=== PATIENT | male | born 2005 | race Two or more races ===

== ENCOUNTER 2025-01-31 19:04 | Inpatient (IN) | payer OTHER, SELFPAY ==
[2025-01-31 19:04] VITALS: BMI 30.9
[2025-01-31 19:46] VITALS: BP 125/86; PULSE 90; RESP 18; TEMP 36.8; O2SAT 98
--- NOTE | 2025-01-31 20:10 | XR_ITS ---
Examination: CT abdomen with intravenous contrast CT pelvis with intravenous contrast 2-D coronal reconstructions 2-D sagittal reconstructions Date and time of exam:January 31, 2025 2120 hours INDICATIONS: Onset right lower abdominal pain beginning 5 days ago. CTDI: vol (mGy) 14.7 DLP: (mGycm) 919 Technique: Multiple axial sections of the abdomen and pelvis have been obtained. 64 slice high-resolution scanner used. 3 mm axial sections have been obtained, post intravenous injection 60 cc [id number] 2-D sagittal, coronal reconstructions obtained. Low dose protocols were performed. One or more of the following dose reduction techniques were used; automated exposure control, adjustment of the mA and/or KV according to patient size, use of iterative reconstruction technique. Findings: No focal liver or splenic lesions No gallstones No pancreatic or adrenal mass No renal or ureteral calculi Aorta normal size Inflammatory change about the right colon, for instance coronal image 38 The appendix is not enlarged or inflamed No bowel obstruction No diverticulitis is Mild free fluid in the pelvis Contracted urinary bladder IMPRESSION: The cecum and right colon show inflammatory change The appendix does not show definite periappendiceal inflammatory change but clinical correlation is advised Highest on the differential list would be colitis such as Crohn's disease or ulcerative colitis The appearance should be clinically correlated
--- NOTE | 2025-01-31 20:22 | PD.EDABDPN ---
ED Abdominal Pain RME/HPI General Chief Complaint: Abdominal Pain Stated complaint: RIGHT LOWER ABD PAIN Time seen by provider: 01/31/25 20:04 Arrival date/time: 01/31/25 19:04 19M with no significant PMH presents to ED with 5 days of worsening RLQ pain. Limitations: no limitations Related Data Allergies Allergy/AdvReac Type Severity Reaction Status Date / Time No Known Allergies Allergy Verified 01/31/25 19:05 Review of Systems Review of Systems Systems Reviewed: All systems reviewed, normal except as documented Constitutional Constitutional: Reports system reviewed and no additional complaints, except as documented, Denies fever(s) and Denies headache(s) ENT Ears, Nose, Mouth, and Throat: Denies disequilibrium and Denies headache(s) Cardiovascular Cardiovascular: Reports system reviewed and no additional complaints, except as documented, Denies chest pain and Denies dyspnea Respiratory Respiratory: Reports system reviewed and no additional complaints, except as documented, Denies cough and Denies dyspnea Gastrointestinal Gastrointestinal: Reports system reviewed and no additional complaints, except as documented, Reports as per HPI, Reports abdominal pain, Denies nausea and Denies vomiting Neurologic Neurologic: Reports system reviewed and no additional complaints, except as documented, Denies confusion, Denies disequilibrium and Denies headache(s) Psychiatric Psychiatric: Denies confusion Past Medical History Social History SMOKING STATUS: Never smoker ED Exam General Limitations: Present no limitations General appearance: Present alert and in no apparent distress Head Head exam: Present atraumatic Eye Eye exam: Present normal appearance, PERRL and EOMI ENT ENT exam: Present normal exam, normal oropharynx and mucous membranes moist Neck Neck exam: Present normal inspection, full ROM and trachea midline Chest Chest inspection: Present normal inspection and symmetric chest wall rise Respiratory Respiratory exam: Present normal lung sounds bilaterally Cardiovascular Cardiovascular exam: Present regular rate, normal rhythm and normal heart sounds Abdominal Exam Abdominal exam: Present soft and normal bowel sounds Abdominal tenderness: Present RLQ Extremities Exam Extremities exam: Present normal inspection and full ROM Back Exam Back exam: Present normal inspection and full ROM Neurological Exam Neurological exam: Present alert, oriented X3 and CN II-XII intact Psychiatric Psychiatric exam: Present normal affect and normal mood Skin Skin exam: Present warm, dry, intact and normal color Course Quality Measures none Orders Category Date Time Status Admit to Inpatient Status Routine Admission 02/01/25 02:36 Active Patient Condition Routine Admission 02/01/25 02:36 Ordered Activity as Tolerated Routine Care 02/01/25 02:37 Ordered COVID-19 Screening Questionnaire NOW Care 01/31/25 22:[address] Screening NOW Care 01/31/25 20:10 Active Decision to Admit X1 Care 01/31/25 22:30 Active Insert IV NOW Care 01/31/25 20:10 Active NPO NOW Care 01/31/25 22:30 Active Notify provider NEEDED Care 02/01/25 02:36 Active Occult Blood,Stool (Nursing) NOW Care 02/01/25 02:36 Active Consult to Gastroenterology Stat Cons 01/31/25 22:30 Ordered Diet Clear Liquid Diet 02/01/25 Breakfast Active Diet NPO (NOW) Diet 01/31/25 22:[address] abdomen pelvis w con Stat Exams 01/31/25 20:10 Completed CBC AM DRAW Lab 02/01/25 05:00 Ordered CBC AM DRAW Lab 02/02/25 05:00 Ordered CBC AM DRAW Lab 02/03/25 05:00 Ordered CBC AM DRAW Lab 02/04/25 05:00 Ordered CBC AM DRAW Lab 02/05/25 05:00 Ordered CBC AM DRAW Lab 02/06/25 05:00 Ordered CBC AM DRAW Lab 02/07/25 05:00 Ordered CBC AM DRAW Lab 02/08/25 05:00 Ordered CBC AM DRAW Lab 02/09/25 05:00 Ordered CBC AM DRAW Lab 02/10/25 05:00 Ordered CBC Stat Lab 01/31/25 20:21 Completed CMP [Comprehensive Metabolic Panel] Stat Lab 01/31/25 20:21 Completed CRP [C-Reactive Protein] Stat Lab 01/31/25 20:21 Completed Calprotectin, Stool* Stat Lab 02/01/25 Ordered Comprehensive Metabolic Panel AM DRAW Lab 02/01/25 05:00 Ordered Comprehensive Metabolic Panel AM DRAW Lab 02/02/25 05:00 Ordered Comprehensive Metabolic Panel AM DRAW Lab 02/03/25 05:00 Ordered Comprehensive Metabolic Panel AM DRAW Lab 02/04/25 05:00 Ordered Comprehensive Metabolic Panel AM DRAW Lab 02/05/25 05:00 Ordered Comprehensive Metabolic Panel AM DRAW Lab 02/06/25 05:00 Ordered Comprehensive Metabolic Panel AM DRAW Lab 02/07/25 05:00 Ordered Comprehensive Metabolic Panel AM DRAW Lab 02/08/25 05:00 Ordered Comprehensive Metabolic Panel AM DRAW Lab 02/09/25 05:00 Ordered Comprehensive Metabolic Panel AM DRAW Lab 02/10/25 05:00 Ordered Drug Screen,Urine Stat Lab 01/31/25 21:33 Completed Helicobacter pylori Ag, Stool* Stat Lab 02/01/25 Ordered Lipase Stat Lab 01/31/25 20:21 Completed Magnesium AM DRAW Lab 02/01/25 05:00 Ordered Magnesium AM DRAW Lab 02/02/25 05:00 Ordered Magnesium AM DRAW Lab 02/03/25 05:00 Ordered Phosphorous AM DRAW Lab 02/02/25 05:00 Ordered Phosphorous AM DRAW Lab 02/03/25 05:00 Ordered Phosphorous AM DRAW Lab 02/04/25 05:00 Ordered Sed Rate (ESR) Stat Lab 01/31/25 20:21 Completed Stool Culture Stat Lab 02/01/25 02:39 Ordered Stool for WBCs Stat Lab 02/01/25 02:39 Ordered Thyroid Stimulating Hormone AM DRAW Lab 02/01/25 05:00 Ordered Urinalysis, C/S if Indicated Stat Lab 01/31/25 21:33 Completed Acetaminophen Tab [Tylenol Tab] Med 02/01/25 02:36 Ordered 650 mg PO Q6H PRN Acetaminophen Tab [Tylenol Tab] Med 02/01/25 02:36 Ordered 650 mg PO Q6H PRN CIPROFLOXACIN/D5w 400 MG IVPB [Cipro Ivpb] Med 01/31/25 22:29 Pending 400 mg in 200 ml IV Q12HR CIPROFLOXACIN/D5w 400 MG IVPB [Cipro Ivpb] Med 01/31/25 22:45 Discontinued 400 mg in 200 ml IV X1 Enoxaparin [Lovenox] Med 02/01/25 09:00 Ordered 40 mg SC QDAY HYDROcodone*/APAP 5/325 [[place] 5/325] Med 02/01/25 02:36 Ordered 1 tab PO Q4HR PRN MethylPREDNISolone.* [SoluMEDROL Inj] Med 01/31/25 22:18 Discontinued 125 mg IVP X1 ONE Morphine Inj Med 02/01/25 02:36 Ordered 4 mg IVP Q6H PRN Morphine Inj Med 01/31/25 22:18 Discontinued 5 mg IVP X1 ONE Ondansetron Inj [Zofran Inj] Med 02/01/25 02:36 Ordered 4 mg IVP Q6H PRN Ondansetron Inj [Zofran Inj] Med 01/31/25 22:18 Discontinued 4 mg IVP X1 ONE Ringers Lactated 1000 ml [Lactated Ringers] 1,000 ml Med 02/01/25 02:45 Ordered IV 125 mls/hr Sodium Chloride 0.9% 1000 ml [Ns] 1,000 ml Med 01/31/25 22:30 Discontinued IV 250 mls/hr metroNIDAZOLE/NS 500 MG IVPB [Flagyl 500 mg IV] Med 02/01/25 02:40 Ordered 500 mg in 100 ml IV Q8HR Code Status Routine Oth 02/01/25 02:36 Ordered Vital Signs Vital signs: Vital Signs Temperature 98.2 F 01/31/25 19:46 Pulse Rate 90 01/31/25 19:46 Respiratory Rate 18 01/31/25 19:46 Blood Pressure 125/86 H 01/31/25 19:46 Pulse Oximetry (%) 98 01/31/25 19:46 Oxygen Delivery Method Room Air 01/31/25 19:46 O2 at 98% on RA and WNLs Abdominal Pain MDM MDM Narrative MDM Narrative:: 19M with no significant PMH presents to ED with 5 days of worsening RLQ pain. Physical exam reveals RLQ tenderness. Patient is afebrile, calm, and alert. No leukocytosis or L shift. CMP unremarkable. Lipase normal. Tox screen and UA unremarkable. ESR normal. CRP mildly elevated. CT showed R colitis, must likely IBD such as UC or Crohn's. Spoke to Dr. Marrufo, GI, who recommends steroids, Cipro, and NPO. He will consult. Spoke to Dr. Dillard, IM who will admit. Patient data External records reviewed:: None Clinical information provided by:: patient Social determinants that could affect healthcare access:: none Patient has the following chronic illnesses:: none How is presenting disease/condition affected by chronic disease/condition?: no chronic disease Evaluation data The following diagnostics were reviewed and interpreted by me:: lab results and radiology exam(s) Lab and/or radiology exams considered but not ordered:: ordered Interpretation Summary: above Medications / Prescriptions Medications or Prescriptions considered but not ordered:: ordered Medication administrations:: Medication Administration History Acetaminophen (Acetaminophen 325 Mg Tablet) 650 mg PO Q6H PRN PRN Reason: Fever >101.5 Stop: 03/03/25 02:35 Acetaminophen (Acetaminophen 325 Mg Tablet) 650 mg PO Q6H PRN PRN Reason: PAIN SCALE 1-3 (mild Stop: 03/03/25 02:35 Hydrocodone Bitart/Acetaminophen (Hydrocodone/Apap 5/325 Tablet) 1 tab PO Q4HR PRN PRN Reason: PAIN SCALE 4-6 (Moderate Stop: 02/06/25 02:35 Enoxaparin Sodium (Enoxaparin Sod Inj 40 Mg/0.4 Ml Syringe) 40 mg SC QDAY ANNETTE Stop: 02/15/25 08:59 Ciprofloxacin/Dextrose (Cipro Ivpb) 400 mg in 200 mls @ 200 mls/hr IV Q12HR ANNETTE Stop: 02/07/25 22:28 Lactated Ringer's (Lactated Ringers) 1,000 mls @ 125 mls/hr IV .Q8H ANNETTE Stop: 03/03/25 02:44 Metronidazole (Flagyl 500 Mg Iv) 500 mg in 100 mls @ 200 mls/hr IV Q8HR ANNETTE Stop: 02/08/25 02:39 Morphine Sulfate (Morphine Sulf Inj 10 Mg/Ml Vial) 4 mg IVP Q6H PRN PRN Reason: PAIN SCALE 7-10 (Severe Stop: 02/06/25 02:35 Ondansetron HCl (Ondansetron Inj 2 Mg/Ml Inj 2 Ml) 4 mg IVP Q6H PRN; Protocol PRN Reason: NAUSEA OR VOMITING Stop: 03/03/25 02:35 Discontinued Medications Sodium Chloride (Ns) 1,000 mls @ 250 mls/hr IV .Q4H ONE Stop: 02/01/25 02:29 Last Admin: 02/01/25 00:15 Dose: 250 mls/hr Documented By: DT Ciprofloxacin/Dextrose (Cipro Ivpb) 400 mg in 200 mls @ 200 mls/hr IV X1 ONE Stop: 01/31/25 23:44 Last Infusion: 02/01/25 01:30 Dose: Infused Documented By: Admin: 02/01/25 00:27 Dose: 200 mls/hr Documented By: DT Methylprednisolone Sodium Succinate (Methylprednisolone Sod Succ 62.5 Mg/Ml 2ml Vial) 125 mg IVP X1 ONE Stop: 01/31/25 22:19 Last Admin: 02/01/25 00:24 Dose: 125 mg Documented By: Admin: 02/01/25 00:22 Dose: 125 mg Documented By: DT Morphine Sulfate (Morphine Sulf Inj 10 Mg/Ml Vial) 5 mg IVP X1 ONE Stop: 01/31/25 22:19 Last Admin: 02/01/25 00:20 Dose: 5 mg Documented By: DT Ondansetron HCl (Ondansetron Inj 2 Mg/Ml Inj 2 Ml) 4 mg IVP X1 ONE; Protocol Stop: 01/31/25 22:19 Last Admin: 02/01/25 00:19 Dose: 4 mg Documented By: DT above Consultations Consultation(s) initiated? (list below): Yes Diagnosis Differential diagnosis abdominal pain: abdominal pain, acute appendicitis, calculus of kidney, constipation, diverticulitis, gastroenteritis, pancreatitis and small bowel obstruction Most likely diagnosis given after review of the tests above:: colitis Admission Indicated Admission indicated?: indicated Admission Request Was there a request for admission?: Yes Admission Attestation Admission request attestation: Discussed case with [Dr. Dillard] from Hospitalist service regarding admission. Discussed patients ED course, exam findings, labs, and radiology results. The Hospitalist [agrees] to accept the patient for admission. Disposition Plan Disposition Plan: Admit Discharge Plan Plan Patient Disposition: Admit Acute Care w/in Hospital Prescriptions/Referrals Referrals: Kemar Colindres MD [Primary Care Provider] - In 1 week Problem List Clinical Impression: Colitis Patient/Caregiver Discharge Instructions Print Language: Arabic Stand Alone Forms: Dorie Award Info., Patient Portal Info Letter
[2025-01-31 20:36] LABS: Basophils % (Auto) 0 % (0-2.5); Eosinophils # (Auto) 0.1 Thou/mm3 (0.0-0.5); Eosinophils % (Auto) 1 % (0-10); Hematocrit 47.4 % (41.0-53.0); Hemoglobin 16.1 g/dL (13.5-16.0); Immature Granulocytes % (Auto) 0 % (0-0); Immature Granulocytes Auto 0.03 Thou/mm3 (0.00-0.00); Lymphocytes % (Auto) 29 % (10-50); Mean Corpuscular Hemoglobin 29.9 pg (25.0-35.0); Mean Corpuscular Volume 88 fL (80-100); Monocytes # (Auto) 0.6 Thou/mm3 (0.0-0.8); Monocytes % (Auto) 6 % (0-12); Neutrophils # (Auto) 6.8 Thou/mm3 (1.8-7.7); Neutrophils % (Auto) 64 % (37-80); Nucleated Red Blood Cell % 0 /100 WBC (0); Platelet Count 332 Thou/mm3 (140-440); RDW Standard Deviation 41.4 fL (35.1-43.9); Red Blood Count 5.39 Miln/mm3 (4.50-5.90); White Blood Count 10.6 Thou/mm3 (4.5-11.0)
[2025-01-31 20:54] LABS: Alanine Aminotransferase 45 U/L (10-49); Albumin, Serum 5.3 gm/dL (3.5-5.0); Albumin/Globulin Ratio 1.7 (1.2-2.2); Alkaline Phosphatase 90 U/L (46-116); Anion Gap 11 (7-16); Aspartate Amino Transferase 30 U/L (0-34); BUN/Creatinine Ratio 9 Ratio (12-20); Bilirubin,Total 0.6 mg/dL (0.3-1.2); Blood Urea Nitrogen 10 mg/dL (9-23); Calcium 10.9 mg/dL (8.3-10.6); Calcium (Corrected) 10.9 mg/dL (8.5-10.1); Carbon Dioxide 28.6 mMol/L (20.0-31.0); Chloride 98 mMol/L (98-107); Creatinine (Component) 1.1 mg/dL (0.6-1.3); Estimated Creatinine Clearance 133.2 mL/min (>60); Globulin 3.1 gm/dL (2.3-3.5); Glucose 92 mg/dL (74-106); Lipase 32 U/L (12-53); Osmolality,Calculated 274 (275-295); Potassium 4.1 mMol/L (3.4-5.1); Sodium 138 mMol/L (136-145); Total Protein 8.4 gm/dL (5.7-8.2); eGFR > 60 See Note
[2025-01-31 21:39] LABS: Collection Type, Urine Clean Catch; RBC,Urine 0 /hpf (0-3)
[2025-01-31 21:46] LABS: Bilirubin,Urine Negative (Negative); Blood,Urine Negative (Negative); Clarity,Urine Clear (Clear/Hazy); Color,Urine Yellow (Lt Yel-Yel); Culture Indicated,Urine Not Indicated; Glucose, Urine Negative (Negative); Ketones,Urine Negative (Negative); Leukocyte Esterase,Urine Negative (Negative); Nitrite,Urine Negative (Negative); PH,Urine 5.5 (5.0-7.0); Protein,Urine Negative (Neg - Trace); Squamous Epithelial Cell,Urine < 1 /hpf (0-5); Urobilinogen,Urine Negative mg/dL (0.0-1.0); WBC,Urine 1 /hpf (0-5)
[2025-01-31 22:01] LABS: Amphetamine/Methamp Scrn,U Negative (Negative); Barbiturate Screen,Urine Negative (Negative); Benzodiazepines Screen,Urine Negative (Negative); Benzoylecgonine Screen, Ur Negative (Negative); Fentanyl Screen,Urine Negative (Negative); Opiate Screen,Urine Negative (Negative); THC Screen,Urine Negative (Negative)
[2025-01-31 23:04] VITALS: BP 134/92; PULSE 76; RESP 14; TEMP 37; O2SAT 98
[2025-01-31 23:14] LABS: C-Reactive Protein 1.6 mg/dL (0.0-0.9)
[2025-01-31 23:53] LABS: Sed Rate (ESR) 15 mm/hr (0-15)
[2025-02-01] MEDS: SODIUM CHLORIDE 0.9% 1000 ML 1,000 ML 250 ML IV (00:15)
[2025-02-01] MEDS: ONDANSETRON INJ 2 MG/ML INJ 2 ML 4 MG IVP ×2 (00:19→06:31)
[2025-02-01] MEDS: MORPHINE SULF INJ 10 MG/ML VIAL 5 MG IVP (00:20)
[2025-02-01] MEDS: MethylPREDNISolone SOD SUCC 62.5 MG/ML 2ML VIAL 125 MG IVP ×2 (00:22→00:24)
[2025-02-01] MEDS: CIPROFLOXACIN/D5w 400 MG IVPB 400 MG/200 ML BAG 200 MG IV ×3 (00:27→20:11)
[2025-02-01 01:00] VITALS: BP 130/80; PULSE 80; RESP 16; TEMP 37; O2SAT 99
--- NOTE | 2025-02-01 02:40 | ESHP_ITS ---
Documentation for date of: 02/01/25 HPI History of Present Illness Chief complaint: Intractable abdominal pain History of present illness: Mr. Freeman is a 19-year-old male with no past medical history presented to [facility] with a chief complaint of significant abdominal pain. Patient states that the abdominal pain started about 4 days prior and really exacerbated yesterday and he noted that it was more frequent with positional changes. He states that he was having difficulty ambulating due to the pain and initially he suspected that it was appendicitis so he decided to come to the emergency department with his mother. Patient states that he has never had abdominal pain like this in the past and he did not find any palliative factors which improved his pain. He states that he has had increased bowel movements since he started experiencing this abdominal pain but at baseline he has about 3 bowel movements a day. He denies any family history of ulcerative or Crohn's disease. He denies any previous history of appendicitis. He scored the pain as 7-8 out of 10 initially described as sharp in the right lower quadrant and radiating to the epigastrium. He states that there is a family history of lupus on paternal aunt and grandmother and thyroid disease on both sides of the family. 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 Able to perform ADLs without assistance Family history: Positive for lupus in paternal aunt and grandma. Positive for hypothyroidism on both sides of his family. Denies any previous history of ulcerative colitis or Crohn's disease in the family or history of colon cancer Allergies: No known drug allergies ED vitals: BP 134/92, pulse 76, RR 14, temp afebrile, O2 sat 98 on room air ED labs: WBC 10.6, hemoglobin 16.1, calcium 10.9, C-reactive protein 1.6, total protein 8.4 with albumin of 5.3 ED imaging: CT abdomen pelvis: Cecum and right colon show inflammatory change, appendix does not show definite periappendiceal inflammatory change but recommend clinical correlation. Highest on differentials includes Crohn's disease versus ulcerative colitis ED management NS 1 L bolus at 250 cc an hour, Zofran 4 mg IV push x 1, morphine 5 mg IV push x 1, methylprednisolone 125 mg IV push x 2, Cipro 400 mg IV x 1 Patient is being admitted to [facility] for intractable pain requiring IV pain medications due to inflammatory bowel disease versus appendicitis Review of Systems Review of Systems Systems Reviewed: All systems reviewed, normal except as documented Exam Vital Signs Temp Pulse Resp BP Pulse Ox O2 Del Method 98.6 F 76 14 134/92 H 98 Room Air 01/31/25 23:04 01/31/25 23:04 01/31/25 23:04 01/31/25 23:04 01/31/25 23:04 01/31/25 23:04 Narrative Exam GENERAL: Alert and oriented x 3. Significant distress. Well-nourished. Very pleasant EYES: EOMI. Anicteric. HEENT: Moist mucous membranes. No scleral icterus. No cervical lymphadenopathy. LUNGS: Clear to auscultation bilaterally. No accessory muscle use. CARDIOVASCULAR: Regular rate and rhythm. No murmur. No JVD. ABDOMEN: Extremely tender abdomen in the light lower quadrant and suprapubic region. Rovsing sign positive and psoas sign positive EXTREMITIES: All 4 extremeties intact. No edema. Nontender. SKIN: No rashes or lesions. Warm. NEUROLOGIC: No focal neurological deficits. CN II-XII grossly intact, but not individually tested. PSYCHIATRIC: Cooperative. Appropriate mood and affect. Results: Labs 01/31/25 20:21 01/31/25 20:21 Labs: Short CBC 01/31/25 Range/Units 20:21 WBC 10.6 (4.5-11.0) Thou/mm3 Hgb 16.1 H (13.5-16.0) g/dL Hct 47.4 (41.0-53.0) % Plt Count 332 (140-440) Thou/mm3 BMP 01/31/25 20:21 Sodium 138 Potassium 4.1 Chloride 98 Carbon Dioxide 28.6 BUN 10 Creatinine 1.1 Glucose 92 Calcium 10.9 H Liver Function 01/31/25 Range/Units 20:21 Total Bilirubin 0.6 (0.3-1.2) mg/dL AST 30 (0-34) U/L ALT 45 (10-49) U/L Alkaline Phosphatase 90 (46-116) U/L Albumin 5.3 H (3.5-5.0) gm/dL Urine 01/31/25 Range/Units 21:33 Urine Color Yellow (Lt Yel-Yel) Urine Clarity Clear (Clear/Hazy) Urine pH 5.5 (5.0-7.0) Ur Specific [place] 1.020 (1.001-1.035) Urine Protein Negative (Neg - Trace) Urine Glucose (UA) Negative (Negative) Quality Measures Quality Measures none Medications Home Medications and Allergies Allergies Allergy/AdvReac Type Severity Reaction Status Date / Time No Known Allergies Allergy Verified 01/31/25 19:05 Visit Medications Acetaminophen (Acetaminophen 325 Mg Tablet) 650 mg PO Q6H PRN PRN Reason: Fever >101.5 Stop: 03/03/25 02:35 Acetaminophen (Acetaminophen 325 Mg Tablet) 650 mg PO Q6H PRN PRN Reason: PAIN SCALE 1-3 (mild Stop: 03/03/25 02:35 Hydrocodone Bitart/Acetaminophen (Hydrocodone/Apap 5/325 Tablet) 1 tab PO Q4HR PRN PRN Reason: PAIN SCALE 4-6 (Moderate Stop: 02/06/25 02:35 Enoxaparin Sodium (Enoxaparin Sod Inj 40 Mg/0.4 Ml Syringe) 40 mg SC QDAY ANNETTE Stop: 02/15/25 08:59 Ciprofloxacin/Dextrose (Cipro Ivpb) 400 mg in 200 mls @ 200 mls/hr IV Q12HR ANNETTE Stop: 02/07/25 22:28 Lactated Ringer's (Lactated Ringers) 1,000 mls @ 125 mls/hr IV .Q8H ANNETTE Stop: 03/03/25 02:44 Morphine Sulfate (Morphine Sulf Inj 10 Mg/Ml Vial) 4 mg IVP Q6H PRN PRN Reason: PAIN SCALE 7-10 (Severe Stop: 02/06/25 02:35 Ondansetron HCl (Ondansetron Inj 2 Mg/Ml Inj 2 Ml) 4 mg IVP Q6H PRN; Protocol PRN Reason: NAUSEA OR VOMITING Stop: 03/03/25 02:35 Discontinued Medications Sodium Chloride (Ns) 1,000 mls @ 250 mls/hr IV .Q4H ONE Stop: 02/01/25 02:29 Last Admin: 02/01/25 00:15 Dose: 250 mls/hr Ciprofloxacin/Dextrose (Cipro Ivpb) 400 mg in 200 mls @ 200 mls/hr IV X1 ONE Stop: 01/31/25 23:44 Last Infusion: 02/01/25 01:30 Dose: Infused Methylprednisolone Sodium Succinate (Methylprednisolone Sod Succ 62.5 Mg/Ml 2ml Vial) 125 mg IVP X1 ONE Stop: 01/31/25 22:19 Last Admin: 02/01/25 00:24 Dose: 125 mg Morphine Sulfate (Morphine Sulf Inj 10 Mg/Ml Vial) 5 mg IVP X1 ONE Stop: 01/31/25 22:19 Last Admin: 02/01/25 00:20 Dose: 5 mg Ondansetron HCl (Ondansetron Inj 2 Mg/Ml Inj 2 Ml) 4 mg IVP X1 ONE; Protocol Stop: 01/31/25 22:19 Last Admin: 02/01/25 00:19 Dose: 4 mg Assessment & Plan Plan #Right lower quadrant pain #Inflammatory bowel disease versus acute appendicitis Patient has right lower quadrant pain that started 4 days prior with increased bowel movements and increase in pain yesterday. Pain described as 7-8 out of 10, sharp, exacerbated by positional changes, no palliative factors with radiation to the epigastric region Psoas sign positive, Rovsing sign positive WBC count within normal limits, no fevers, CRP elevated at 1.6 CT abdomen pelvis shows inflammatory changes near the cecum. No periappendiceal inflammation noted on CT recommend clinical correlation Pain management ordered Patient is being started on ciprofloxacin and Flagyl GI consulted Will order GEN surge consultation Consideration for colonoscopy if early signs of ulcerative colitis versus Crohn's disease with family history of autoimmune disease Patient received steroids in the ED but we will withhold steroids if concern for infectious etiology Plan of care discussed with supervising attending Dr. Nishant Baker M.D. PGY-3 Attending Provider Attestation/Addendum I have examined the patient, reviewed labs and imaging findings, discussed the case with the resident(s), and reviewed entered orders. I agree with the plan of care as outlined in this note, with these additional summaries/recommendations: After examination of the patient and review of the clinical data, I feel that this patient needs admission to the hospital for further treatment and evaluation. Patient is a 19-year-old male with no significant past medical history who presents to [facility] emergency department with chief complaint of severe abdominal pain. Patient and patient's mother seen at bedside. Patient reports he has had severe lower abdominal pain mostly located in the right lower quadrant that started 4 days ago and has progressively worsened. He rated the abdominal pain between 7- 10 out of 10. Patient required IV morphine in the ED for pain control. Patient underwent CT scanning of abdomen and pelvis which revealed cecum and right colon inflammatory changes, appendix did not show definitive periappendiceal inflammatory changes. Patient diagnosed with colitis which is infectious versus inflammatory. Gastroenterology was consulted and recommended steroids, Cipro, and NPO. I am also concerned patient may have appendicitis. CT scan did not show any overt inflammation in the appendix although was not definitive. Patient has positive Rovsing sign and psoas sign. Patient also has significant tenderness to palpation right lower quadrant. Consult general surgery, recommendations appreciated. Start IV maintenance fluids and patient NPO. Stool studies ordered. Zofran as needed for nausea and morphine as needed for pain management. Patient and patient's mother updated on the plan and in agreement. All questions answered to satisfaction. Repeat hematology and chemistry panel in AM. Please see residents note for additional details and management. Dr. Nishant MD
[2025-02-01 03:00] VITALS: BP 127/85; PULSE 85; RESP 16; TEMP 37; O2SAT 99
[2025-02-01] MEDS: metroNIDAZOLE/NS 500 MG IVPB 500 MG/100 ML BAG 200 MG IV ×3 (03:15→22:11)
[2025-02-01] MEDS: RINGERS LACTATED 1000 ML 1,000 ML 125 ML IV ×3 (03:40→20:09)
[2025-02-01 05:06] LABS: Basophils % (Auto) 0 % (0-2.5); Eosinophils % (Auto) 0 % (0-10); Hematocrit 45.8 % (41.0-53.0); Immature Granulocytes % (Auto) 0 % (0-0); Immature Granulocytes Auto 0.03 Thou/mm3 (0.00-0.00); Lymphocytes # (Auto) 1.7 Thou/mm3 (1.0-4.8); Lymphocytes % (Auto) 16 % (10-50); Mean Corpuscular HGB Conc 34.9 g/dl (31.0-37.0); Mean Corpuscular Hemoglobin 29.9 pg (25.0-35.0); Mean Corpuscular Volume 85 fL (80-100); Monocytes # (Auto) 0.1 Thou/mm3 (0.0-0.8); Monocytes % (Auto) 1 % (0-12); Neutrophils # (Auto) 8.9 Thou/mm3 (1.8-7.7); Neutrophils % (Auto) 82 % (37-80); Nucleated Red Blood Cell % 0 /100 WBC (0); Platelet Count 306 Thou/mm3 (140-440); RDW Standard Deviation 40.3 fL (35.1-43.9); Red Blood Count 5.36 Miln/mm3 (4.50-5.90); White Blood Count 10.8 Thou/mm3 (4.5-11.0)
[2025-02-01 05:31] LABS: Alanine Aminotransferase 42 U/L (10-49); Albumin, Serum 5.2 gm/dL (3.5-5.0); Albumin/Globulin Ratio 1.9 (1.2-2.2); Alkaline Phosphatase 89 U/L (46-116); Anion Gap 10 (7-16); Aspartate Amino Transferase 29 U/L (0-34); BUN/Creatinine Ratio 11 Ratio (12-20); Bilirubin,Total 0.6 mg/dL (0.3-1.2); Blood Urea Nitrogen 11 mg/dL (9-23); Calcium 10.7 mg/dL (8.3-10.6); Calcium (Corrected) 10.7 mg/dL (8.5-10.1); Carbon Dioxide 27.4 mMol/L (20.0-31.0); Chloride 100 mMol/L (98-107); Estimated Creatinine Clearance 146.5 mL/min (>60); Globulin 2.8 gm/dL (2.3-3.5); Glucose 129 mg/dL (74-106); Osmolality,Calculated 275 (275-295); Potassium 4.3 mMol/L (3.4-5.1); Sodium 137 mMol/L (136-145); Thyroid Stimulating Hormone 1.26 uIU/mL (0.55-4.78); eGFR > 60 See Note
[2025-02-01] MEDS: MORPHINE SULF INJ 10 MG/ML VIAL 4 MG IVP (06:33)
[2025-02-01 06:43] VITALS: BMI 30.8
[2025-02-01 08:00] VITALS: BP 120/75; PULSE 79; RESP 16; TEMP 36.4; O2SAT 96
[2025-02-01] MEDS: ENOXAPARIN SOD INJ 40 MG/0.4 ML SYRINGE SC (08:17)
[2025-02-01 12:00] VITALS: BP 117/55; PULSE 88; RESP 17; TEMP 36.5; O2SAT 98
--- NOTE | 2025-02-01 14:13 | PD.SURCONS ---
HPI Consult details Consult date: 02/01/25 Reason for consultation narrative: Right sided abdominal pain History of present illness: 19-year-old male without significant past medical history was admitted with abdominal pain. He states that his pain started about 5 days ago over right lower quadrant. The pain was initially intermittent. Since yesterday his pain has been getting progressively worse. He denies nausea, vomiting, fever, chills, dysuria or constipation. He also denies having similar symptoms in the past with no recent history of trauma. His laboratory workup are within normal limits. CT scan showed normal-appearing appendix with some inflammatory changes about the right colon. Review of Systems Constitutional Constitutional: Denies chills, Denies fever(s) and Denies headache(s) ENT Ears, Nose, Mouth, and Throat: Denies headache(s) Cardiovascular Cardiovascular: Denies chest pain Respiratory Respiratory: Denies cough Gastrointestinal Gastrointestinal: Reports abdominal pain, Denies nausea and Denies vomiting Genitourinary Genitourinary: Denies difficulty urinating Neurologic Neurologic: Denies headache(s) Hematologic/Lymphatic Hematologic/Lymphatic: Denies easy bleeding and Denies easy bruising Past Medical History Surgical History OTHER SURGICAL HX: No surgeries in the past Social History SMOKING STATUS: Never smoker SUBSTANCE USE: does not use ALCOHOL: Current (Socially) Meds Home Medications and Allergies Allergies Allergy/AdvReac Type Severity Reaction Status Date / Time No Known Allergies Allergy Verified 01/31/25 19:05 Exam Vital Signs Temp Pulse Resp BP Pulse Ox O2 Del Method 97.7 F 88 17 117/55 L 98 Room Air 02/01/25 12:00 02/01/25 12:00 02/01/25 12:00 02/01/25 12:00 02/01/25 12:00 02/01/25 12:00 Constitutional Constitutional: no acute distress Routine Abdominal Exam Comments: Abdomen is soft and nondistended. He has right lower quadrant tenderness to palpation with guarding, no rebound tenderness or peritonitis at this time Results Results: Laboratory Laboratory results: results reviewed Results: Imaging Imaging narrative: CT scan of abdomen and pelvis images reviewed, radiologist interpretation noted Assessment & Plan Additional Assessment Additional comments: Mild inflammatory changes about the right colon, normal appendix. Patient does not have appendicitis based on history or radiographic findings. He has nonspecific colitis Plan No indications for surgical intervention. Patient can be started on clear liquids and advance diet as tolerated. He can be discharged when he improves clinically
--- NOTE | 2025-02-01 15:39 | ESPR_ITS ---
Documentation for date of: 02/01/25 Subjective Subjective Interval history: Patient seen and examined at bedside this a.m. He says that his right-sided abdominal pain was relieved by morphine 4 Mg IV Q4 hourly, but is still a 4/10 and constant with no radiation and aggravated by movement. Vital signs were within normal limits. On his labs CRP was elevated at 1.6 and corrected calcium 10.7. Stool studies including calprotectin, H. pylori, culture and WBCs pending at this time Of note patient does endorse a history of weight loss over the past 4 days but denies any diarrhea. Exam Vital Signs Temp Pulse Resp BP Pulse Ox O2 Del Method 97.7 F 88 17 117/55 L 98 Room Air 02/01/25 12:00 02/01/25 12:00 02/01/25 12:00 02/01/25 12:00 02/01/25 12:00 02/01/25 12:00 Narrative Exam Constitutional Alert, oriented x 3 and mild distress. Young male HEENT Vision grossly intact. Patent nares. Trachea midline Respiratory Chest normal on inspection and clear auscultation bilaterally Cardiovascular S1 and S2 audible, RRR. No murmurs carotid bruit. No gross JVD. Abdominal Soft and tender to deep palpation right lower quadrant, positive McBurney and Rovsing sign. Positive psoas sign. Bowel sounds present Genitourinary No bladder tenderness, no flank pain. Normal to palpation Musculoskeletal Extremities tone within normal limits. No LE edema. Neurological CN II - XII grossly intact. Extremity motor and sensation grossly intact. Skin Warm, dry and intact. No apparent lesions. Psychiatric Patient has good affect, is cooperative Objective Labs 02/02/25 05:10 02/02/25 05:10 Labs: Laboratory Results - last 24 hr 01/31/25 01/31/25 02/01/25 20:21 21:33 04:58 WBC 10.6 10.8 RBC 5.39 5.36 Hgb 16.1 H 16.0 Hct 47.4 45.8 MCV 88 85 MCH 29.9 29.9 MCHC 34.0 34.9 RDW Std Deviation 41.4 40.3 Plt Count 332 306 Neut % (Auto) 64 82 H Lymph % (Auto) 29 16 [place] % (Auto) 6 1 Eos % (Auto) 1 0 Baso % (Auto) 0 0 Neut # (Auto) 6.8 8.9 H Lymph # (Auto) 3.0 1.7 [place] # (Auto) 0.6 0.1 Eos # (Auto) 0.1 0.0 Baso # (Auto) 0.0 0.0 Immature Gran # (Auto) 0.03 H 0.03 H Absolute Nucleated RBC 0.00 0.00 Immature Gran % 0 0 Nucleated RBC % 0 0 ESR 15 Sodium 138 137 Potassium 4.1 4.3 Chloride 98 100 Carbon Dioxide 28.6 27.4 Anion Gap 11 10 BUN 10 11 Creatinine 1.1 1.0 Estim Creat Clear Calc 133.2 146.5 eGFR > 60 > 60 BUN/Creatinine Ratio 9 L 11 L Glucose 92 129 H Calculated Osmolality 274 L 275 Calcium 10.9 H 10.7 H Corrected Calcium 10.9 H 10.7 H Magnesium 2.0 Total Bilirubin 0.6 0.6 AST 30 29 ALT 45 42 Alkaline Phosphatase 90 89 C-Reactive Prot, Quant 1.6 H Total Protein 8.4 H 8.0 Albumin 5.3 H 5.2 H Globulin 3.1 2.8 Albumin/Globulin Ratio 1.7 1.9 Lipase 32 TSH 1.26 Ur Collection Type Clean Catch Urine Color Yellow Urine Clarity Clear Urine pH 5.5 Ur Specific [place] 1.020 Urine Protein Negative Urine Glucose (UA) Negative Urine Ketones Negative Urine Blood Negative Urine Nitrite Negative Urine Bilirubin Negative Urine Urobilinogen (Auto) Negative Ur Leukocyte Esterase Negative Urine RBC 0 Urine WBC 1 Ur Squamous Epith Cells < 1 Urine Bacteria None Ur Culture Indicated? Not Indicated Urine Opiates Screen Negative Urine Fentanyl Screen Negative Ur Barbiturates Screen Negative U Amphetamin/Meth Scrn Negative U Benzodiazepines Scrn Negative U Cocaine Metab Screen Negative U Marijuana (THC) Screen Negative Quality Measures Quality Measures none Assessment & Plan Assessment Current Active Medications: Generic Name Dose Route Start Last Admin Trade Name Freq PRN Reason Stop Dose Admin Acetaminophen 650 mg 02/01/25 02:36 Acetaminophen 325 Mg Tablet PO 03/03/25 02:35 Q6H PRN Fever >101.5 Acetaminophen 650 mg 02/01/25 02:36 Acetaminophen 325 Mg Tablet PO 03/03/25 02:35 Q6H PRN PAIN SCALE 1-3 (mild Hydrocodone Bitart/Acetaminophen 1 tab 02/01/25 02:36 Hydrocodone/Apap 5/325 Tablet PO 02/06/25 02:35 Q4HR PRN PAIN SCALE 4-6 (Moderate Enoxaparin Sodium 40 mg 02/01/25 09:00 02/01/25 08:17 Enoxaparin Sod Inj 40 Mg/0.4 Ml Syringe SC 02/15/25 08:59 40 mg QDAY ANNETTE Administration Ciprofloxacin/Dextrose 400 mg in 200 mls @ 200 mls/hr 02/01/25 09:00 02/01/25 11:43 Cipro Ivpb IV 02/08/25 08:59 Infused Q12HR ANNETTE Infusion Lactated Ringer's 1,000 mls @ 125 mls/hr 02/01/25 02:45 02/01/25 08:22 Lactated Ringers IV 03/03/25 02:44 125 mls/hr .Q8H ANNETTE Administration Metronidazole 500 mg in 100 mls @ 200 mls/hr 02/01/25 14:00 02/01/25 15:15 Flagyl 500 Mg Iv IV 02/08/25 13:59 200 mls/hr Q8HR ANNETTE Administration Lactobacillus Rhamnosus 1 cap 02/01/25 09:00 02/01/25 11:42 Lactobacillus Rhamnosus 1 Cap PO 03/03/25 08:59 Not Given DAILY ANNETTE Morphine Sulfate 4 mg 02/01/25 02:36 02/01/25 06:33 Morphine Sulf Inj 10 Mg/Ml Vial IVP 02/06/25 02:35 4 mg Q6H PRN Administration PAIN SCALE 7-10 (Severe Ondansetron HCl 4 mg 02/01/25 02:36 02/01/25 06:31 Ondansetron Inj 2 Mg/Ml Inj 2 Ml IVP 03/03/25 02:35 4 mg Q6H PRN Administration NAUSEA OR VOMITING Protocol Plan Patient is a 19-year-old male with no significant past medical history who presented with progressively worsening right lower quadrant pain over the past 3 to 4 days associated with anorexia. Upon presentation CT scan Showed inflammatory changes around the cecum with no signs of appendicitis or abscess. Patient will be admitted for intractable abdominal pain Intractable abdominal pain Nonspecific colitis DDx: Bacterial gastroenteritis, viral gastroenteritis, IBD Patient presented with progressively worsening abdominal pain for the past 3 to 4 days associate with anorexia. On exam has positive Pabon's, Rovsing and psoas sign CT abdomen was positive for inflammatory changes near the cecum. Negative for appendicitis or abscess. Plan: ? Pending stool studies including calprotectin, stool for WBCs, culture, H. pylori ? Pain control with morphine 4 mg IV Q4 hourly as needed ? Lactobacilli 1 cap p.o. daily ? Continue metronidazole 500 Mg IV every 8 hourly started on [02/01? ? Continue ciprofloxacin 400 Mg IV twice daily started on [02/01? ? Naprapath, Dr. Marrufo consulted. Appreciate recommendations Health maintenance: Disposition: IV pain medication. Pending GI consultation Diet: N.p.o. Lines: pIVs GI Prophylaxis: None Thrombo Prophylaxis: Not indicated Code status: FULL CODE Plan of care discussed with Attending Dr. Rose and PGY2 Dr. Donald Werner MD PGY 1 Disclaimer: This note was dictated by speech recognition. Minor errors in recreational sports director may be present due to voice recognition software. Attending Provider Attestation/Addendum I reviewed labs, imaging, EKG, home medications and prior available records. Face to face evaluation was performed by me. I have personally examined the patient and discussed assessment and plan with the IM team. I reviewed the resident note and agree with the plan with exceptions as below. Intractable abdominal pain Right-sided colitis Possible IBD Consult surgery: No indication for surgery Consulted GI Management of pain as needed Continue ciprofloxacin/Flagyl
[2025-02-01 16:00] VITALS: BP 123/64; PULSE 114; RESP 18; TEMP 36.6; O2SAT 97
--- NOTE | 2025-02-01 16:58 | PC.SS ---
Rounding note: pending GI and Surgery recommendations. Patient on IV abx.
[2025-02-01 20:00] VITALS: BP 143/77; PULSE 88; RESP 16; TEMP 36.6; O2SAT 97
--- NOTE | 2025-02-01 21:06 | ESCONSULT_ITS ---
HPI Data of Consult Requesting Physician: Jani Dillard MD Primary Care Provider: Kemar Colindres MD Consult Narrative Reason for consult: Pain abdomen, abnormal CTAP History of present illness: 19 years old male presents the emergency room with 5-day history of abdominal pain very severe intractable right-sided pain CT scan of the abdomen pelvis showed inflammatory changes in the cecum and ascending colon but relatively normal-appearing appendix I have been consulted cc:: cc: Jani Dillard MD Review of Systems Review of Systems Systems Reviewed: All systems reviewed, normal except as documented Meds Home Medications and Allergies Allergies Allergy/AdvReac Type Severity Reaction Status Date / Time No Known Allergies Allergy Verified 01/31/25 19:05 Exam Vital Signs Temp Pulse Resp BP Pulse Ox O2 Del Method 97.9 F 88 16 143/77 H 97 Room Air 02/01/25 20:00 02/01/25 20:00 02/01/25 20:00 02/01/25 20:00 02/01/25 20:00 02/01/25 20:00 Constitutional Comments: Seems to be in pain requiring morphine in the hospital Routine Respiratory Exam Comments: Normal to auscultation Routine Abdominal Exam Comments: Right lower quadrant tenderness with positive bowel sounds Results Labs 02/01/25 04:58 02/01/25 04:58 Labs: Short CBC 02/01/25 Range/Units 04:58 WBC 10.8 (4.5-11.0) Thou/mm3 Hgb 16.0 (13.5-16.0) g/dL Hct 45.8 (41.0-53.0) % Plt Count 306 (140-440) Thou/mm3 BMP 02/01/25 04:58 Sodium 137 Potassium 4.3 Chloride 100 Carbon Dioxide 27.4 BUN 11 Creatinine 1.0 Glucose 129 H Calcium 10.7 H Liver Function 02/01/25 Range/Units 04:58 Total Bilirubin 0.6 (0.3-1.2) mg/dL AST 29 (0-34) U/L ALT 42 (10-49) U/L Alkaline Phosphatase 89 (46-116) U/L Albumin 5.2 H (3.5-5.0) gm/dL Urine 01/31/25 Range/Units 21:33 Urine Color Yellow (Lt Yel-Yel) Urine Clarity Clear (Clear/Hazy) Urine pH 5.5 (5.0-7.0) Ur Specific [place] 1.020 (1.001-1.035) Urine Protein Negative (Neg - Trace) Urine Glucose (UA) Negative (Negative) Assessment and Plan Additional Assessment & Plan Additional Plan: Pain abdomen with mild leukocytosis and very abnormal CT scan of the abdomen pelvis Etiology include infectious versus inflammatory colitis Plan Continue broad-spectrum antibiotics ANCA antibody Clear liquid diet GoLytely prep Colonoscopy once the patient is cleared with possible biopsy possible therapeutic intervention Thank you very much for the opportunity to participate in care of this patient
[2025-02-01] MEDS: NA SU/NAHCO3/KC/PEG (Golytely) 4,000 ML BTL 4000 ML PO (22:55)
[2025-02-02] VITALS (18 sets, daily range): BP systolic 98–144; BP diastolic 56–91; PULSE 67–96; RESP 12–20; TEMP 36.1–37.2; O2SAT 95–100
[2025-02-02] MEDS: RINGERS LACTATED 1000 ML 1,000 ML 125 ML IV ×2 (04:01→17:46)
[2025-02-02] MEDS: metroNIDAZOLE/NS 500 MG IVPB 500 MG/100 ML BAG 200 MG IV ×3 (05:09→21:43)
[2025-02-02 06:14] LABS: Basophils % (Auto) 0 % (0-2.5); Eosinophils % (Auto) 0 % (0-10); Hematocrit 42.8 % (41.0-53.0); Hemoglobin 14.3 g/dL (13.5-16.0); Immature Granulocytes % (Auto) 0 % (0-0); Immature Granulocytes Auto 0.03 Thou/mm3 (0.00-0.00); Lymphocytes # (Auto) 2.9 Thou/mm3 (1.0-4.8); Lymphocytes % (Auto) 28 % (10-50); Mean Corpuscular HGB Conc 33.4 g/dl (31.0-37.0); Mean Corpuscular Hemoglobin 29.7 pg (25.0-35.0); Mean Corpuscular Volume 89 fL (80-100); Monocytes # (Auto) 0.7 Thou/mm3 (0.0-0.8); Monocytes % (Auto) 7 % (0-12); Neutrophils # (Auto) 6.5 Thou/mm3 (1.8-7.7); Neutrophils % (Auto) 64 % (37-80); Nucleated Red Blood Cell % 0 /100 WBC (0); Platelet Count 297 Thou/mm3 (140-440); RDW Standard Deviation 42.1 fL (35.1-43.9); Red Blood Count 4.82 Miln/mm3 (4.50-5.90); White Blood Count 10.1 Thou/mm3 (4.5-11.0)
[2025-02-02 06:38] LABS: Alanine Aminotransferase 31 U/L (10-49); Albumin, Serum 4.4 gm/dL (3.5-5.0); Albumin/Globulin Ratio 1.9 (1.2-2.2); Alkaline Phosphatase 75 U/L (46-116); Anion Gap 11 (7-16); Aspartate Amino Transferase 21 U/L (0-34); BUN/Creatinine Ratio 12 Ratio (12-20); Bilirubin,Total 0.6 mg/dL (0.3-1.2); Blood Urea Nitrogen 12 mg/dL (9-23); Carbon Dioxide 28.2 mMol/L (20.0-31.0); Chloride 104 mMol/L (98-107); Estimated Creatinine Clearance 146.4 mL/min (>60); Globulin 2.3 gm/dL (2.3-3.5); Glucose 89 mg/dL (74-106); Magnesium 1.9 mg/dL (1.6-2.6); Osmolality,Calculated 283 (275-295); Phosphorous 3.5 mg/dL (2.4-5.1); Sodium 143 mMol/L (136-145); Total Protein 6.7 gm/dL (5.7-8.2); eGFR > 60 See Note
--- NOTE | 2025-02-02 08:33 | PD.RESPRO ---
Documentation for date of: 02/02/25 Subjective Subjective Interval history: No overnight events. Patient was seen and examined at bedside this morning, with his mother present. Endorses improvement of right lower quadrant pain now only requiring Tylenol. Vital signs and labs were within normal limits, ANCA screen pending. Patient currently n.p.o. and undergoing GoLytely bowel prep for colonoscopy once cleared. Radio Frequency Design Engineer, Dr. Marrufo consulted and closely following the case. Appreciate recommendations Exam Vital Signs Temp Pulse Resp BP Pulse Ox O2 Del Method 97.5 F 78 18 115/65 98 Room Air 02/02/25 08:00 02/02/25 08:00 02/02/25 08:00 02/02/25 08:00 02/02/25 08:00 02/02/25 08:00 Narrative Exam Constitutional Alert, oriented x 3 and comfortable. Young male HEENT Vision grossly intact. Patent nares. Trachea midline Respiratory Chest normal on inspection and clear auscultation bilaterally Cardiovascular S1 and S2 audible, RRR. No murmurs carotid bruit. No gross JVD. Abdominal Soft, obese and mildly tender to deep palpation right lower quadrant, much improved. Bowel sounds present Genitourinary No bladder tenderness, no flank pain. Normal to palpation Musculoskeletal Extremities tone within normal limits. No LE edema. Neurological CN II - XII grossly intact. Extremity motor and sensation grossly intact. Skin Warm, dry and intact. No apparent lesions. Psychiatric Patient has good affect, is cooperative Objective Labs 02/02/25 05:10 02/02/25 05:10 Labs: Laboratory Results - last 24 hr 02/02/25 05:10 WBC 10.1 RBC 4.82 Hgb 14.3 Hct 42.8 MCV 89 MCH 29.7 MCHC 33.4 RDW Std Deviation 42.1 Plt Count 297 Neut % (Auto) 64 Lymph % (Auto) 28 [place] % (Auto) 7 Eos % (Auto) 0 Baso % (Auto) 0 Neut # (Auto) 6.5 Lymph # (Auto) 2.9 [place] # (Auto) 0.7 Eos # (Auto) 0.0 Baso # (Auto) 0.0 Immature Gran # (Auto) 0.03 H Absolute Nucleated RBC 0.00 Immature Gran % 0 Nucleated RBC % 0 Sodium 143 Potassium 4.0 Chloride 104 Carbon Dioxide 28.2 Anion Gap 11 BUN 12 Creatinine 1.0 Estim Creat Clear Calc 146.4 eGFR > 60 BUN/Creatinine Ratio 12 Glucose 89 Calculated Osmolality 283 Calcium 9.0 D Corrected Calcium 9.0 D Phosphorus 3.5 Magnesium 1.9 Total Bilirubin 0.6 AST 21 ALT 31 Alkaline Phosphatase 75 Total Protein 6.7 Albumin 4.4 D Globulin 2.3 Albumin/Globulin Ratio 1.9 Quality Measures Quality Measures none Assessment & Plan Assessment Current Active Medications: Generic Name Dose Route Start Last Admin Trade Name Freq PRN Reason Stop Dose Admin Acetaminophen 650 mg 02/01/25 02:36 Acetaminophen 325 Mg Tablet PO 03/03/25 02:35 Q6H PRN Fever >101.5 Acetaminophen 650 mg 02/01/25 02:36 Acetaminophen 325 Mg Tablet PO 03/03/25 02:35 Q6H PRN PAIN SCALE 1-3 (mild Hydrocodone Bitart/Acetaminophen 1 tab 02/01/25 02:36 Hydrocodone/Apap 5/325 Tablet PO 02/06/25 02:35 Q4HR PRN PAIN SCALE 4-6 (Moderate Ciprofloxacin/Dextrose 400 mg in 200 mls @ 200 mls/hr 02/01/25 09:00 02/01/25 20:11 Cipro Ivpb IV 02/08/25 08:59 200 mls/hr Q12HR ANNETTE Administration Lactated Ringer's 1,000 mls @ 125 mls/hr 02/01/25 02:45 02/02/25 04:01 Lactated Ringers IV 03/03/25 02:44 125 mls/hr .Q8H ANNETTE Administration Metronidazole 500 mg in 100 mls @ 200 mls/hr 02/01/25 14:00 02/02/25 05:09 Flagyl 500 Mg Iv IV 02/08/25 13:59 200 mls/hr Q8HR ANNETTE Administration Lactobacillus Rhamnosus 1 cap 02/01/25 09:00 02/01/25 11:42 Lactobacillus Rhamnosus 1 Cap PO 03/03/25 08:59 Not Given DAILY ANNETTE Morphine Sulfate 4 mg 02/01/25 02:36 02/01/25 06:33 Morphine Sulf Inj 10 Mg/Ml Vial IVP 02/06/25 02:35 4 mg Q6H PRN Administration PAIN SCALE 7-10 (Severe Ondansetron HCl 4 mg 02/01/25 02:36 02/01/25 06:31 Ondansetron Inj 2 Mg/Ml Inj 2 Ml IVP 03/03/25 02:35 4 mg Q6H PRN Administration NAUSEA OR VOMITING Protocol Plan Patient is a 19-year-old male with no significant past medical history who presented with progressively worsening right lower quadrant pain over the past 3 to 4 days associated with anorexia. Upon presentation CT scan Showed inflammatory changes around the cecum with no signs of appendicitis or abscess. Of note he has a significant family history for SLE and hypothyroidism; his grandmother, aunts and cousins. Patient will be admitted for intractable abdominal pain. Intractable abdominal pain?resolving Nonspecific colitis DDx: Bacterial gastroenteritis, viral gastroenteritis, IBD, IBS Patient presented with progressively worsening abdominal pain for the past 3 to 4 days associate with anorexia. On exam has positive Pabon's, Rovsing and psoas sign. CT abdomen was positive for inflammatory changes near the cecum. Negative for appendicitis or abscess. Endorses improvement of right lower quadrant pain now only requiring Tylenol. Vital signs and labs were within normal limits, ANCA screen pending. Patient currently n.p.o. and undergoing GoLytely bowel prep for colonoscopy once cleared. Plan: ? Pending stool studies including calprotectin, stool for WBCs, culture, H. pylori ? Pending ANCA screen ? Lactobacilli 1 cap p.o. daily ? D2 metronidazole 500 Mg IV every 8 hourly started on [02/01? ? D2 ciprofloxacin 400 Mg IV twice daily started on [02/01? ? On GoLytely bowel prep, for colonoscopy once cleared as per GI recommendations ? Radio Frequency Design Engineer, Dr. Marrufo consulted. Appreciate recommendations Health maintenance: Disposition: IV pain medication. For colonoscopy once clear Diet: N.p.o. Lines: pIVs GI Prophylaxis: None Thrombo Prophylaxis: Not indicated Code status: FULL CODE Plan of care discussed with Attending Dr. Milton Werner MD PGY 1 Disclaimer: This note was dictated by speech recognition. Minor errors in printer slotter helper may be present due to voice recognition software. Attending Provider Attestation/Addendum I reviewed labs, imaging, EKG, home medications and prior available records. Face to face evaluation was performed by me. I have personally examined the patient and discussed assessment and plan with the IM team. I reviewed the resident note and agree with the plan with exceptions as below. Intractable abdominal pain Right-sided colitis Possible IBD Consult surgery: No indication for surgery Consulted GI: Plan for colonoscopy on 02/02 Management of pain as needed Continue ciprofloxacin/Flagyl
[2025-02-02] MEDS: LACTOBACILLUS RHAMNOSUS 1 CAP PO (08:52)
[2025-02-02] MEDS: CIPROFLOXACIN/D5w 400 MG IVPB 400 MG/200 ML BAG 200 MG IV ×2 (08:53→20:32)
--- NOTE | 2025-02-02 09:17 | PC.SS ---
Follow up note: Pt will have Colonoscopy today.
[2025-02-02] MEDS: ACETAMINOPHEN 325 MG TABLET 650 MG PO (10:11)
--- NOTE | 2025-02-02 10:54 | PC.SS ---
SS met with patient regarding his d/c plan. Pt is alert/oriented. Pt was admitted for Intractable Abdominal Pain. Pt confirmed demographic and contact information is correct on facesheet. Pt resides with both parents. Pt ambulates independently without assistance or DME. Pt is ok with all ADLs. 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 Patient?s pharmacy of choice is [facility]. Pt named his mom, Elodia Doughertyierrez medical decision maker if she is unable. Patient updated his emergency contact information. Mom and dad's phone numbers were incorrect on patient's facesheet. SS has contacted Liza from pt registration to make corrections on patient's facesheet. Patient?s choice is to return home upon d/c. Pt states not diabetic and is not on dialysis. D/C plan: Return home Next of Kin: Elodia Freeman, mom, phone# [phone] or Wolf Freeman, dad, phone# [phone] PCP: [facility] Address: Correct on facesheet
--- NOTE | 2025-02-02 11:38 | PC.NURSE ---
Tap water enema given, pt. tolerated well, pt. is clear and ready for colonoscopy. Endo staff notified.
--- NOTE | 2025-02-02 13:36 | PD.SURPROG ---
Documentation for date of: 02/02/25 Subjective Subjective Narrative: Patient is seen and examined. He has remained hemodynamically stable and afebrile with normal WBC however he continues to have right-sided abdominal pain Exam Vital Signs Temp Pulse Resp BP Pulse Ox O2 Del Method 97.5 F 78 18 115/65 98 Room Air 02/02/25 08:00 02/02/25 08:00 02/02/25 08:00 02/02/25 08:00 02/02/25 08:00 02/02/25 08:00 Constitutional Constitutional: no acute distress Routine Abdominal Exam Comments: Abdomen is soft and nondistended. He has right lower quadrant tenderness to deep palpation with guarding, no rebound tenderness or peritonitis Assessment & Plan Assessment Additional comments: Right-sided abdominal pain. Patient is unlikely to have appendicitis based on history and radiographic findings Plan Patient was evaluated by Dr. Marrufo who is planning to do a colonoscopy with biopsy. There is no indications for surgical intervention at this time. I will sign off, please call for any questions
--- NOTE | 2025-02-02 15:32 | SUR.PHASEI ---
1532: Pt. AAOx4, vitals stable, breathing unlabored, no complaint of pain or nausea, no dressing in place, no active bleed noted, report received from [place] RODRIGUES.
--- NOTE | 2025-02-02 16:02 | SUR.PHASEI ---
1602: Pt. AAOx4, vitals stable, breathing unlabored, no complaint of pain or nausea, no dressing in place, no active bleed noted, report given to [place] RODRIGUES prior to transfer to room 357. Family made aware of transfer to room.
[2025-02-02 18:55] LABS: Stool for WBCs Few (Negative)
[2025-02-03] VITALS: BP 114/68; PULSE 64; RESP 16; TEMP 36.6; O2SAT 97
[2025-02-03] MEDS: RINGERS LACTATED 1000 ML 1,000 ML 125 ML IV (03:02)
[2025-02-03 04:00] VITALS: BP 104/65; PULSE 79; RESP 16; TEMP 36.5; O2SAT 98
[2025-02-03 05:28] LABS: Basophils % (Auto) 0 % (0-2.5); Eosinophils # (Auto) 0.1 Thou/mm3 (0.0-0.5); Eosinophils % (Auto) 1 % (0-10); Hematocrit 42.8 % (41.0-53.0); Hemoglobin 14.4 g/dL (13.5-16.0); Immature Granulocytes % (Auto) 0 % (0-0); Immature Granulocytes Auto 0.01 Thou/mm3 (0.00-0.00); Lymphocytes # (Auto) 3.4 Thou/mm3 (1.0-4.8); Lymphocytes % (Auto) 44 % (10-50); Mean Corpuscular HGB Conc 33.6 g/dl (31.0-37.0); Mean Corpuscular Hemoglobin 29.6 pg (25.0-35.0); Mean Corpuscular Volume 88 fL (80-100); Monocytes # (Auto) 0.5 Thou/mm3 (0.0-0.8); Monocytes % (Auto) 6 % (0-12); Neutrophils # (Auto) 3.8 Thou/mm3 (1.8-7.7); Neutrophils % (Auto) 49 % (37-80); Nucleated Red Blood Cell % 0 /100 WBC (0); Platelet Count 291 Thou/mm3 (140-440); RDW Standard Deviation 42.2 fL (35.1-43.9); Red Blood Count 4.87 Miln/mm3 (4.50-5.90); White Blood Count 7.8 Thou/mm3 (4.5-11.0)
[2025-02-03] MEDS: metroNIDAZOLE/NS 500 MG IVPB 500 MG/100 ML BAG 200 MG IV (05:30)
[2025-02-03 06:03] LABS: Alanine Aminotransferase 37 U/L (10-49); Albumin, Serum 4.2 gm/dL (3.5-5.0); Albumin/Globulin Ratio 1.8 (1.2-2.2); Alkaline Phosphatase 71 U/L (46-116); Anion Gap 13 (7-16); Aspartate Amino Transferase 30 U/L (0-34); BUN/Creatinine Ratio 11 Ratio (12-20); Bilirubin,Total 0.4 mg/dL (0.3-1.2); Blood Urea Nitrogen 12 mg/dL (9-23); Calcium 8.9 mg/dL (8.3-10.6); Calcium (Corrected) 8.9 mg/dL (8.5-10.1); Chloride 103 mMol/L (98-107); Creatinine (Component) 1.1 mg/dL (0.6-1.3); Estimated Creatinine Clearance 133.1 mL/min (>60); Globulin 2.3 gm/dL (2.3-3.5); Glucose 79 mg/dL (74-106); Magnesium 1.8 mg/dL (1.6-2.6); Osmolality,Calculated 283 (275-295); Phosphorous 4.4 mg/dL (2.4-5.1); Potassium 4.1 mMol/L (3.4-5.1); Sodium 143 mMol/L (136-145); Total Protein 6.5 gm/dL (5.7-8.2); eGFR > 60 See Note
[2025-02-03 07:44] VITALS: BP 132/71; PULSE 71; RESP 15; TEMP 37; O2SAT 97
[2025-02-03] MEDS: CIPROFLOXACIN/D5w 400 MG IVPB 400 MG/200 ML BAG 200 MG IV (08:05)
[2025-02-03] MEDS: LACTOBACILLUS RHAMNOSUS 1 CAP PO (08:05)
--- NOTE | 2025-02-03 09:24 | ESDS_ITS ---
Planned Discharge Date 02/03/25 DS: Providers Provider Date of admission: 02/01/25 02:36 Primary care physician: Kemar Colindres MD Admitting Provider: Jani Dillard MD Attending Provider on Admission: Jani Dillard MD Consults: 01/31/25 22:30 Consult to Gastroenterology Stat Comment: Consulting Provider: Radha Marrufo 02/01/25 02:52 Consult to General Surgery Stat Comment: concern for appendicitis vs. IBD Consulting Provider: Abhijit Damian Attending Provider on DC: Ariel Rose MD Discharging Provider: Airel Rose MD DS: Diagnosis Problem List Completed Was Problem List Reviewed/Reconciled?: Yes Hospital Course Hospital Course Hospital course: Zay is a 19-year-old male patient with no past medical history was brought to the ED secondary to acute abdominal pain that located in the right lower quadrant that has been going on for 1 week before admission and continued to worsen.. His vitals all within normal limits, his hemoglobin was 16.1, and WBC was in the high normal range 10.6. He reported 3 episodes of bowel movements before presentation however patient denied any nausea or vomiting, fever or chills. Abdominal pelvis CT scan showed Cecum and right colon show inflammatory change, appendix does not show definite periappendiceal inflammatory change but recommend clinical correlation. Consultation to the general surgery Dr Damian was ordered and he concluded that the patient does not need any surgical intervention and appendicitis was ruled out. We also consulted the dye boarding machine operator Dr. Marrufo and she recommended to do colonoscopy to rule out inflammatory bowel disease I also ordered for the patient ANCA antibodies. Colonoscopy was done and showed localized area of mildly erythematous mucosa found in the cecum and in the ascending colon which were biopsied. Patient also found to have hemorrhoids at the perianal exam. Patient was resumed on oral diet and tolerated well and was recommended to be discharged and follow-up in outpatient settings regarding his biopsy results and also the autoimmune disorder screening results. During his stay patient was given IV fluids, Flagyl, ciprofloxacin, acetaminophen, lactobacillus rhamnosus. Patient was deemed to be clinically stable for discharge and was given the following instructions: Follow up with your PCP within one week from discharge Follow up with the GI specialist Dr Marrufo regarding your biopsy results and also for the pending blood work Avoid NSAIDs such as Ibuprofen, Aleive.. etc. In case of recurrence or worsening of your symptoms please return to the ED as soon as possible If you do not have a primary care physicain you [place] [id number]. Phone number [phone] Discharge diagnosis #Acute abdominal pain #Acute unspecified colitis pending biopsy results #Acute appendicitis ruled out #Internal hemorrhoids - Patient's plan and care discussed with my attending, Dr. Nidia Bennett MD Internal Medicine PGY-2 Time Spent with Patient Time attestation: Total time spent providing and/or coordinating discharge services: Time spent: Greater than 30 minutes Exam Vital Signs Temp Pulse Resp BP Pulse Ox O2 Del Method O2 Flow Rate 98.6 F 71 15 132/71 H 97 Room Air 3 02/03/25 07:44 02/03/25 07:44 02/03/25 07:44 02/03/25 07:44 02/03/25 07:44 02/03/25 07:44 02/03/25 04:00 Narrative Exam GEN: AOx3, able to speak full sentences HEENT: NC/AC, PERRLA, oral mucosa moist, neck supple CVS: RRR, S1-S2 present, no murmurs appreciated RESP: CTAB GI: soft, mild abdominal discomfort on deep palpation, NBS MSK: able to move all 4 limbs, no lower extremity edema SKIN: warm and dry [employer]UST[employer]: CN II-XII and Sensation grossly intact. Discharge Plan Plan Patient Disposition: HOME (Self Care) Patient condition on transfer: Stable Care Plan Goals: Follow up with your PCP within one week from discharge Follow up with the GI specialist Dr Marrufo regarding your biopsy results and also for the pending blood work Avoid NSAIDs such as Ibuprofen, Aleive.. etc. In case of recurrence or worsening of your symptoms please return to the ED as soon as possible If you do not have a primary care physicain you can follow up [place] [id number]. Phone number [phone] Prescriptions/Referrals Prescriptions/Med Rec: New ciprofloxacin HCl [Cipro] 500 mg tablet 500 mg PO BID Qty: 14 0RF Referrals: [facility] [Outside] Kemar Colindres MD [Primary Care Provider] - Radha Marrufo MD [Physician] - Gerald Werner MD [Resident] - Patient/Caregiver Discharge Instructions Discharge Activity: activity as tolerated Other Discharge Diet Instructions: Peptic Ulcer Disease/GERD/[place] diet Education Materials: Colonoscopy, Understanding Colitis Print Language: Kittitian Stand Alone Forms: Dorie Award Info., Patient Portal Info Letter Discharge Order Discharge Orders: Discharge (Routine); Ordered 02/03/25 Ordered By: Devin Bennett Quality Discharge Quality Measures VTE prophylaxis MD Attestestation MD Attestation I reviewed labs, imaging, EKG, home medications and prior available records. Face to face evaluation was performed by me. I have personally examined the patient and discussed assessment and plan with the IM team. I reviewed the resident note and agree with the plan with exceptions as below. Intractable abdominal pain Right-sided colitis Possible IBD Consult surgery: No indication for surgery Consulted GI: Status post colonoscopy on 02/02 that showed erythematous cecum and ascending colon s/p biopsy. Can represent infectious versus inflammatory etiology. Follow-up with the biopsy results as outpatient Management of pain as needed Continue ciprofloxacin Time spent is 40 minutes. More than 50% of the time was spent on patient education and coordination of care.
--- NOTE | 2025-02-03 11:15 | ESPR_ITS ---
Documentation for date of: 02/03/25 Subjective Subjective Interval history: Doing well Patient to be discharged home on ciprofloxacin 500 mg p.o. twice daily for 7 days Biopsies from the right colon pending Patient can be followed by the PCP Exam Vital Signs Temp Pulse Resp BP Pulse Ox O2 Del Method O2 Flow Rate 98.6 F 71 15 132/71 H 97 Room Air 3 02/03/25 07:44 02/03/25 07:44 02/03/25 07:44 02/03/25 07:44 02/03/25 07:44 02/03/25 07:44 02/03/25 04:00 Objective Labs 02/03/25 04:16 02/03/25 04:16 Labs: Laboratory Results - last 24 hr 02/02/25 02/03/25 16:35 04:16 WBC 7.8 RBC 4.87 Hgb 14.4 Hct 42.8 MCV 88 MCH 29.6 MCHC 33.6 RDW Std Deviation 42.2 Plt Count 291 Neut % (Auto) 49 Lymph % (Auto) 44 [place] % (Auto) 6 Eos % (Auto) 1 Baso % (Auto) 0 Neut # (Auto) 3.8 Lymph # (Auto) 3.4 [place] # (Auto) 0.5 Eos # (Auto) 0.1 Baso # (Auto) 0.0 Immature Gran # (Auto) 0.01 H Absolute Nucleated RBC 0.00 Immature Gran % 0 Nucleated RBC % 0 Sodium 143 Potassium 4.1 Chloride 103 Carbon Dioxide 27.0 Anion Gap 13 BUN 12 Creatinine 1.1 Estim Creat Clear Calc 133.1 eGFR > 60 BUN/Creatinine Ratio 11 L Glucose 79 Calculated Osmolality 283 Calcium 8.9 Corrected Calcium 8.9 Phosphorus 4.4 Magnesium 1.8 Total Bilirubin 0.4 AST 30 ALT 37 Alkaline Phosphatase 71 Total Protein 6.5 Albumin 4.2 Globulin 2.3 Albumin/Globulin Ratio 1.8 Stool for White Cells Few A Impressions Impression: Infectious colitis cecum and ascending colon resolving Plan As in the HPI Assessment & Plan A&P Narrative Pain abdomen with mild leukocytosis and very abnormal CT scan of the abdomen pelvis Etiology include infectious versus inflammatory colitis Plan Continue broad-spectrum antibiotics ANCA antibody Clear liquid diet GoLytely prep Colonoscopy once the patient is cleared with possible biopsy possible therapeutic intervention Thank you very much for the opportunity to participate in care of this patient Time Spent With Patient Time: Total time spent is greater than 50% in coordination of care (as documented) at patient's floor/unit and/or counseling patient:
[2025-02-03 11:59] VITALS: BP 140/82; PULSE 86; RESP 18; TEMP 36.9; O2SAT 97
[2025-02-05 07:40] LABS: OBS Performed By CHANL3; OBS QC OK? Yes; Occult Blood, Stool Negative (Negative)
[2025-02-09 06:59] LABS: ANCA Screen NEGATIVE (NEGATIVE); Myeloperoxidase Ab <1.0 AI (<1.0); Proteinase-3 Ab <1.0 AI (<1.0)
[2025-02-09 07:06] LABS: Helicobacter pylori Ag, Stool* NOT DETECTED (NOT DETECTED)
[2025-02-12 06:41] LABS: Calprotectin, Stool* <5 mcg/g
== END 2025-02-03 12:42 | disposition home or self-care (01) | DRG 392 ==
LOC: SERX 02-01 02:49 → SERHOLD 02-01 04:44 → S3NX 02-01 06:41
PROVIDERS: Physician Assistant; Specialist; Student in an Organized Health Care Education/Training Program; Admitting Provider Student in an Organized Health Care Education/Training Program; Emergency Provider Emergency Medicine; PCP Family Medicine; Visit Provider Student in an Organized Health Care Education/Training Program
PROC: 0DJD8ZZ Inspection of Lower Intestinal Tract, Via Natural or Artificial Opening Endoscopic (ICD-10-PCS; CPT 45378; principal; 2025-02-02 11:45)
DX: A09 Infectious gastroenteritis and colitis, unspecified (principal); K64.8 Other hemorrhoids
CPT/HCPCS: 36415; 74177; 80053; 80307; 81001; 82270; 83690; 83735; 83993; 84100; 84443; 85025; 85652; 86021; 86036; 86140; 87015; 87045; 87046; 87205; 87338; 87899; 96361; 96365; 96375; 96376; 99285; A4649; J0744; J1200; J1650; J2250; J2270; J2405; J2919; J3010; J3490; J7030; J7120; Q9967; A9270; J1836

== ENCOUNTER 2025-08-04 18:28 | Emergency (ER) | payer OTHER, MEDICAID, SELFPAY ==
[2025-08-04 18:29] VITALS: BMI 29.8
[2025-08-04 18:34] VITALS: BP 154/95; PULSE 89; RESP 18; TEMP 36.8; O2SAT 98
--- NOTE | 2025-08-04 18:42 | EDNOTE_ITS ---
ED Headache RME/HPI General Chief Complaint: Headache Stated Complaint: HEADACHE X4 DAYS Time Seen by Provider: 08/04/25 18:42 Arrival date/time: 08/04/25 18:28 RME / HPI RME / HPI Narrative: See [facility] for Dr. Gonzalez's HPI Documentation. Related Data Previous Rx's ?Medication ?Instructions ?Recorded acetaminophen 300 mg-codeine 30 mg 2 tab PO Q8H PRN pa in #20 tabs 08/04/25 tablet Allergies Allergy/AdvReac Type Severity Reaction Status Date / Time No Known Allergies Allergy Verified 01/31/25 19:05 Review of Systems Review of Systems Systems Reviewed: All systems reviewed, normal except as documented Past Medical History Past Medical History GASTROINTESTINAL: Positive Colitis ED Exam Narrative Physical exam: See [facility] for Dr. Gonzalez's Physical Exam Documentation. Course Quality Measures none Orders Category Date Time Status CT head/brain wo con Stat Exams 08/04/25 18:42 Completed ACETAMINOPHEN w/COD 300-30 [Tylenol w/Cod #3] Med 08/04/25 18:42 Discontinued 2 tab PO X1 ONE Ibuprofen Tab [Motrin Tab] Med 08/04/25 18:42 Discontinued 800 mg PO X1 ONE Vital Signs Vital signs: Vital Signs Temperature 98.2 F 08/04/25 18:34 Pulse Rate 89 08/04/25 18:34 Respiratory Rate 18 08/04/25 18:34 Blood Pressure 154/95 H 08/04/25 18:34 Pulse Oximetry (%) 98 08/04/25 18:34 Oxygen Delivery Method Room Air 08/04/25 18:34 Headache [facility] Narrative [facility] Narrative:: This section includes all my notes and documentations, including HPI, PE, and ED course. Janusz Gonzalez MD HPI: 20 y/o male presents with left-sided headache x 3 days. No nausea or vomiting. No photophobia or phonophobia. Reports increased stress. No speech or visual impairment. No loss of power in arms or legs. No numbness or tingling. No fever or chills. No neck pain or stiffness. No other complaints. ROS: All negative except as documented in HPI. Physical Exam: General: Alert and oriented. No acute distress. Eyes: Conjunctivae and lids clear. EOMI. PERRL. ENT: No nasal congestion. Pharynx normal. Tympanic membrane normal bilaterally. Neck: Supple. No carotid bruit. No JVD. Heart: RRR. Lungs: No respiratory distress. Good air movement. No rhonchi, wheezing, rales. Skin: Warm and dry. Neuro: Alert and oriented X 3. Cranial Nerves II-XII grossly intact. No peripheral motor deficits. I reviewed all diagnostic test results: My review of the Head/Brain CT report is no acute findings. At this point, diagnoses include: Tension Headache Treatment here included: Two Tylenol #3 Motrin 800 mg He felt much better. Recommended supportive care. Based on my best medical judgment, made decision no further evaluation or treatment indicated at this time. Patient understands and agrees to the discharge instructions customized and printed, see below. Discharge Instructions from Dr. Gonzalez printed for you: 1. Fortunately, there is no life-threatening condition. Such as stroke or brain tumor. 2. You are most likely experiencing tension headache, possibly from stress. 3. Ibuprofen 800 mg every 6-8 hours then as needed. 4. Tylenol with codeine for severe pain. 5. See a private doctor on 08/06/2025 for recheck. Ask for help with MRI imaging of the brain and referral to see neurologist, to make sure there is no serious underlying condition. 6. Seek immediate medical care with worsening or with any concerns. Janusz Gonzalez MD Patient data External records reviewed:: [facility] previous records (Reviewed prior ED records from 01/31/25. Patient was seen for Colitis.) Clinical information provided by:: patient Social determinants that could affect healthcare access:: none Patient has the following chronic illnesses:: Colitis How is presenting disease/condition affected by chronic disease/condition?: exacerbated by Evaluation data The following diagnostics were reviewed and interpreted by me:: radiology exam(s) Lab and/or radiology exams considered but not ordered:: None Interpretation Summary: I reviewed all diagnostic test results: My review of the Head/Brain CT report is no acute findings. Medications / Prescriptions Medications or Prescriptions considered but not ordered:: None Medication administrations:: Medication Administration History Discontinued Medications Acetaminophen/Codeine Phosphate (Acetaminophen W/Cod 300-30 Tablet) 2 tab PO X1 ONE Stop: 08/04/25 18:43 Last Admin: 08/04/25 18:46 Dose: 2 tab Documented By: BD Ibuprofen (Ibuprofen Tab 400 Mg Tablet) 800 mg PO X1 ONE Stop: 08/04/25 18:43 Last Admin: 08/04/25 18:46 Dose: 800 mg Documented By: BD Treatment here included: Two Tylenol #3 Motrin 800 mg Consultations Consultation(s) initiated? (list below): No Diagnosis Differential diagnosis headache: migraine, tension headache, subarachnoid hemorrhage, headache, sinusitis and postconcussion syndrome Most likely diagnosis given after review of the tests above:: Tension Headache Admission Indicated Admission indicated?: not indicated Explain why admission is indicated or not indicated:: With significant improvement and no condition needing emergent intervention, there was no indication for admission. Admission Request Was there a request for admission?: No Disposition Plan Disposition Plan: Discharge Discharge Attestation Discharge Attestation: The patient and all family members were given an opportunity to ask questions and understood the discharge instructions. Discharge instructions specifically effects, indications for sooner follow up or return to the emergency department, and the expected course of current diagnosis. Patient condition: Stable Discharge Plan Plan Patient Disposition: HOME (Self Care) Prescriptions/Referrals Prescriptions/Med Rec: New acetaminophen-codeine 300-30 mg tablet 2 tab PO Q8H MDD 6 PRN (Reason: pain) Qty: 20 0RF Referrals: Kemar Colindres MD [Primary Care Provider, Family Practice] - In 1 week Problem List Clinical Impression: Tension headache Patient/Caregiver Discharge Instructions Discharge Activity: activity as tolerated Education Materials: ED Headache, Tension Additional Instructions: Discharge Instructions from Dr. Gonzalez printed for you: 1. Fortunately, there is no life-threatening condition. Such as stroke or brain tumor. 2. You are most likely experiencing tension headache, possibly from stress. 3. Ibuprofen 800 mg every 6-8 hours then as needed. 4. Tylenol with codeine for severe pain. 5. See a private doctor on 08/06/2025 for recheck. Ask for help with MRI imaging of the brain and referral to see neurologist, to make sure there is no serious underlying condition. 6. Seek immediate medical care with worsening or with any concerns. Print Language: Hungarian Stand Alone Forms: Dorie Award Info., Patient Portal Info Letter
--- NOTE | 2025-08-04 18:42 | XR_ITS ---
Examination: CT brain head without contrast. 2-D sagittal coronal reconstructions Date and time of exam: August 04, 2025, 1910 hours INDICATIONS: Headache beginning 4 days ago CTDI: vol (mGy): 54 DLP: (mGycm): 1777 Technique: Multiple CT axial sections of the brain have been obtained, 5 mm slice thickness. Contrast has not been administered. 2-D sagittal, coronal reconstructions have been obtained Low dose protocols were performed. One or more of the following dose reduction techniques were used; automated exposure control, adjustment of the mA and/or KV according to patient size, use of iterative reconstruction technique. Findings: No significant ventricular enlargement. Intra-axial or extra-axial hemorrhage density is not seen. No mass effect or midline shift Basal cisterns are not remarkable. Fourth ventricle is midline. Cranial vault intact. Impression: Negative for acute hemorrhage, mass effect or midline shift Advise clinical correlation and follow-up accordingly
[2025-08-04] MEDS: ACETAMINOPHEN w/COD 300-30 TABLET 2 TAB PO (18:46)
[2025-08-04] MEDS: IBUPROFEN TAB 400 MG TABLET 800 MG PO (18:46)
[2025-08-04 21:17] VITALS: BP 146/72; PULSE 76; RESP 16; TEMP 36.8; O2SAT 98
== END 2025-08-04 21:18 | disposition home or self-care (01) ==
PROVIDERS: Emergency Provider Emergency Medicine; PCP Family Medicine
DX: G44.209 Tension-type headache, unspecified, not intractable (principal)
CPT/HCPCS: 70450; 99283; A9270